=== PATIENT | female | born 1945 | race Caucasian/White ===

== ENCOUNTER 2018-02-17 08:52 | Emergency (ER) | payer MEDICARE ==
[2018-02-17 09:26] VITALS: BP 158/59
--- NOTE | 2018-02-17 09:51 | RAD ---
Indication: Left foot injury. 3 views of left foot demonstrate osteopenia. There is suggestion of nondisplaced fracture of the distal end of the proximal phalanx of the fourth digit. No significant displacement is noted. Inferior calcaneal spur is noted. IMPRESSION: Question of a nondisplaced fracture through the distal and of the proximal phalanx fourth digit. Clinical correlation is suggested. Diffuse osteopenia is noted.
--- NOTE | 2018-02-17 10:09 | UC ---
Lower Extremity/Ankle HPI - HPI Summary HPI Summary: left foot pain x 5 days twisted her left foot 5 days ago as she was walking her dog + pain and swelling of the left foot - History of Current Complaint Chief Complaint: UCLowerExtremity Stated Complaint: LT FOOT COMP Time Seen by Provider: 02/17/18 09:26 Hx Obtained From: Patient ?: No Onset/Duration: Sudden Onset, Lasting Days - 5, Still Present Severity Initially: Moderate Severity Currently: Moderate Pain Intensity: 2 Aggravating Factor(s): Standing, Ambulation Alleviating Factor(s): Rest, Elevation, Ice Able to Bear Weight: Yes - Allergies/Home Medications Allergies/Adverse Reactions: Allergies Allergy/AdvReac Type Severity Reaction Status Date / Time No Known Allergies Allergy Verified 02/17/18 09:19 Home Medications: Home Medications Atorvastatin* [Lipitor*] 20 mg PO DAILY 02/17/18 [History Confirmed 02/17/18] Lisinopril TAB* [Prinivil TAB*] 40 mg PO DAILY 02/17/18 [History Confirmed 02/17] amLODIPine TAB* [Norvasc 5 mg TAB*] 5 mg PO DAILY 02/17/18 [History Confirmed ] metFORMIN* [Glucophage 500 MG TAB *] 500 mg PO DAILY 02/17/18 [History Confirmed 02/17/18] PMH/Surg Hx/FS Hx/Imm Hx Endocrine History: Diabetes - Surgical History Surgical History: Yes Surgery Procedure, Year, and Place: T&A. appy - Family History Known Family History: Negative: Blood Disorder - Social History Alcohol Use: None Substance Use Type: None Smoking Status (MU): Heavy Every Day Tobacco Smoker Type: Cigarettes Amount Used/How Often: 1/2 PPD Review of Systems Constitutional: Negative Skin: Negative Eyes: Negative ENT: Negative Respiratory: Negative Is Patient Immunocompromised?: No All Other Systems Reviewed And Are Negative: Yes Physical Exam Triage Information Reviewed: Yes Appearance: Well-Appearing, No Pain Distress, Well-Nourished Vital Signs: Initial Vital Signs Temp 98 F 02/17/18 09:20 Pulse 69 02/17/18 09:20 Resp 20 02/17/18 09:20 BP 158/59 02/17/18 09:20 Pulse Ox 100 02/17/18 09:20 Vital Signs Reviewed: Yes Eyes: Positive: Conjunctiva Clear ENT: Positive: Normal ENT inspection, Hearing grossly normal, Pharynx normal Neck: Positive: Supple, Nontender, No Lymphadenopathy Respiratory: Positive: Chest non-tender, Lungs clear, Normal breath sounds Cardiovascular: Positive: RRR, No Murmur, Pulses Normal Musculoskeletal Exam: Normal Skin Exam: Normal Diagnostics - Laboratory Diagnostic Studies Completed/Ordered: 3 views of left foot demonstrate osteopenia. There is suggestion of xray left foot: nondisplaced fracture. of the distal end of the proximal phalanx of the fourth digit. No significant displacement. is noted. Lower Extremity Course/Dx - Differential Dx/Diagnosis Provider Diagnoses: fracture left foot Discharge - Sign-Out/Discharge Documenting (check all that apply): Discharge/Admit/Transfer - Discharge Plan Condition: Stable Disposition: HOME Patient Education Materials: Foot Fracture in Adults (ED) Referrals: Laquita Valencia MD [Primary Care Provider] - 7 Days Additional Instructions: rest, ice, elevation , use pos op shoes - Billing Disposition and Condition Condition: STABLE Disposition: HOME
== END 2018-02-17 10:18 | disposition home or self-care (01) ==
LOC: UCCORT 08:52
DX: E11.9 Type 2 diabetes mellitus without complications (principal); Z79.84 Long term (current) use of oral hypoglycemic drugs; F17.210 Nicotine dependence, cigarettes, uncomplicated; S92.512A Displaced fracture of proximal phalanx of left lesser toe(s), initial encounter for closed fracture; X50.0XXA Overexertion from strenuous movement or load, initial encounter; Y93.K1 Activity, walking an animal; Y92.9 Unspecified place or not applicable; Y99.9 Unspecified external cause status
CPT/HCPCS: 99202; G0463

== ENCOUNTER 2024-09-06 06:43 | Observation (INO) ==
[~2024-09-06 06:43] MED LIST: NS 0.45% 1000 ml BAG 1,000 ML IV SCH; Naloxone 0.4 mg VIAL 0.4 mg/ml 1 ml VIAL IV PRN; Ondansetron 4 mg VIAL 2 MG/ML 2 ml VIAL IV PRN; Sulfur Hexaflouride MICROSPHR 25 MG VIAL IV PRN; fentaNYL 100 mcg/2 ml 50 MCG/ML VIAL IV PRN
[2024-09-06] MEDS ORDERED: Sulfur Hexaflouride MICROSPHR 25 MG VIAL IV PRN (07:07)
[2024-09-06 08:41] LABS: Rapid COVID-19 Molecular Undetected (Undetected)
[2024-09-06 08:56] LABS: Hematocrit 24.6 % (35-45); Hemoglobin 8.6 g/dL (11.5-14.3); Mean Corpuscular Volume 99.9 fL (80-97); Mean Platelet Volume 6.6 fL (7.5-11.2); Platelet Count 442 10^3/uL (150-450); Red Blood Count 2.47 10^6/uL (3.63-4.92)
[2024-09-06 09:16] LABS: Creatinine, Serum 0.82 mg/dL (0.51-0.95); Potassium 4.1 mmol/L (3.5-5.0); eGFR CKD-EPI 72.7 (>60)
[2024-09-06] MEDS ORDERED: Dextrose 50% Syringe 50 ml 25 GM/50 ML SYRINGE IV PUSH PRN (12:58)
[2024-09-06 13:58] LABS: TSH Ultra Thyroid Stim Horm 1.89 mcIU/mL (0.34-5.60)
[2024-09-06 14:01] LABS: Free T3 2.57 pg/mL (2.5-3.9)
[2024-09-06 14:03] LABS: Folate > 20.00 ng/mL (5.90-24.80)
[2024-09-06 14:05] LABS: Free T4 1.08 ng/dL (0.61-1.12)
[2024-09-06 14:06] LABS: Vitamin B12 748 pg/mL (180-914)
[2024-09-06 14:37] LABS: Immature Retic Fraction 0.38
[2024-09-06 15:35] LABS: Corrected Retic Count 0.8 % (0.5-2.2); Hematocrit for Retic CNT 24.8 % (35-45); RBC Retic Count 2.47 10^6/ul (3.63-4.92)
[2024-09-06] MEDS: Acetaminophen IV 1 GM/100ML 750 MG/75 ML BAG IV ONE (16:11)
[2024-09-06] MEDS: Buffered Lidocaine 1% SYRIN 1 ml INTRADERM ONE (16:11)
[2024-09-06] MEDS: Heparin 5000 UNITS/ML 1 mL VIAL SUBCUT SCH (16:12)
[2024-09-06] MEDS: Lactated Ringers 1000 ml BAG 1,000 ML IV SCH (16:15)
[2024-09-06 16:48] LABS: Ferritin 54.4 ng/mL (11-307)
[2024-09-06 18:34] LABS: LDH 224 U/L (140-271)
[2024-09-06 19:58] VITALS: BP 145/65
[2024-09-06] MEDS ORDERED: Calcium/Vitamin D TAB 250/125 TAB PO SCH (21:00)
== END 2024-09-06 19:55 | disposition short-term general hospital (02) ==
LOC: OR 06:43 → MEDTELE 06:43 → EDSTATUS 11:15
PROVIDERS: ADMIT Orthopaedic Surgery; ATTEND Internal Medicine